=== PATIENT | female | born 1980 | race Caucasian/White ===

== ENCOUNTER 2024-12-11 14:53 | Outpatient (CLI) | payer MEDICAID, SELFPAY | END 2024-12-11 14:54 | disposition home or self-care (01) | LOC: PUVA 15:03 | PROVIDERS: PCP Physician Assistant; Visit Provider Dermatology | DX: L92.0 Granuloma annulare (principal) | CPT/HCPCS: 96900 ==

== ENCOUNTER 2024-12-12 08:07 | Outpatient (CLI) | payer MEDICAID, SELFPAY | END 2024-12-12 08:08 | disposition home or self-care (01) | LOC: PUVA 08:08 | PROVIDERS: PCP Physician Assistant; Visit Provider Dermatology | DX: L92.0 Granuloma annulare (principal) | CPT/HCPCS: 96900 ==

== ENCOUNTER 2024-12-18 14:46 | Outpatient (CLI) | payer MEDICAID, SELFPAY | END 2024-12-18 14:47 | disposition home or self-care (01) | LOC: PUVA 14:46 | PROVIDERS: PCP Family Medicine; Visit Provider Dermatology | DX: L92.0 Granuloma annulare (principal) | CPT/HCPCS: 96900 ==

== ENCOUNTER 2024-12-19 07:18 | Outpatient (CLI) | payer MEDICAID, SELFPAY | END 2024-12-19 07:19 | disposition home or self-care (01) | LOC: PUVA 07:19 | PROVIDERS: PCP Family Medicine; Visit Provider Dermatology | DX: L92.0 Granuloma annulare (principal) | CPT/HCPCS: 96900 ==

== ENCOUNTER 2024-12-23 08:02 | Outpatient (CLI) | payer MEDICAID, SELFPAY | END 2024-12-23 08:03 | disposition home or self-care (01) | LOC: PUVA 08:02 | PROVIDERS: PCP Family Medicine; Visit Provider Dermatology | DX: L92.0 Granuloma annulare (principal) | CPT/HCPCS: 96900 ==

== ENCOUNTER 2024-12-25 07:27 | Outpatient (CLI) | payer MEDICAID, SELFPAY | END 2024-12-25 07:28 | disposition home or self-care (01) | LOC: PUVA 07:28 | PROVIDERS: PCP Family Medicine; Visit Provider Dermatology | DX: L92.0 Granuloma annulare (principal) | CPT/HCPCS: 96900 ==

== ENCOUNTER 2024-12-30 07:07 | Outpatient (CLI) | payer MEDICAID, SELFPAY | END 2024-12-30 07:08 | disposition home or self-care (01) | LOC: PUVA 07:07 | PROVIDERS: PCP Family Medicine; Visit Provider Dermatology | DX: L92.0 Granuloma annulare (principal) | CPT/HCPCS: 96900 ==

== ENCOUNTER 2025-01-06 14:45 | Outpatient (CLI) | payer MEDICAID, SELFPAY | END 2025-01-06 14:46 | disposition home or self-care (01) | LOC: PUVA 14:45 | PROVIDERS: PCP Family Medicine; Visit Provider Dermatology | DX: L92.0 Granuloma annulare (principal) | CPT/HCPCS: 96900 ==

== ENCOUNTER 2025-01-07 15:25 | Outpatient (CLI) | payer MEDICAID, SELFPAY | END 2025-01-07 15:26 | disposition home or self-care (01) | LOC: PUVA 15:25 | PROVIDERS: PCP Family Medicine; Visit Provider Dermatology | DX: L92.0 Granuloma annulare (principal) | CPT/HCPCS: 96900 ==

== ENCOUNTER 2025-01-13 14:55 | Outpatient (CLI) | payer MEDICAID, SELFPAY | END 2025-01-13 14:56 | disposition home or self-care (01) | LOC: PUVA 14:55 | PROVIDERS: PCP Family Medicine; Visit Provider Dermatology | DX: L92.0 Granuloma annulare (principal) | CPT/HCPCS: 96900 ==

== ENCOUNTER 2025-01-15 10:21 | Outpatient (CLI) | payer MEDICAID, SELFPAY | END 2025-01-15 10:22 | disposition home or self-care (01) | LOC: PUVA 10:21 | PROVIDERS: PCP Family Medicine; Visit Provider Dermatology | DX: L92.0 Granuloma annulare (principal) | CPT/HCPCS: 96900 ==

== ENCOUNTER 2025-01-20 07:06 | Outpatient (CLI) | payer MEDICAID, SELFPAY | END 2025-01-20 07:07 | disposition home or self-care (01) | LOC: PUVA 07:06 | PROVIDERS: PCP Family Medicine; Visit Provider Dermatology | DX: L92.0 Granuloma annulare (principal) | CPT/HCPCS: 96900 ==

== ENCOUNTER 2025-01-26 07:54 | Outpatient (CLI) | payer MEDICAID, SELFPAY | END 2025-01-26 07:55 | disposition home or self-care (01) | LOC: PUVA 07:55 | PROVIDERS: PCP Family Medicine; Visit Provider Dermatology | DX: L92.0 Granuloma annulare (principal) | CPT/HCPCS: 96900 ==

== ENCOUNTER 2025-01-29 13:03 | Outpatient (CLI) | payer MEDICAID, SELFPAY | END 2025-01-29 13:04 | disposition home or self-care (01) | LOC: PUVA 13:03 | PROVIDERS: PCP Family Medicine; Visit Provider Dermatology | DX: L92.0 Granuloma annulare (principal) | CPT/HCPCS: 96900 ==

== ENCOUNTER 2025-02-03 14:26 | Outpatient (CLI) | payer MEDICAID, SELFPAY | END 2025-02-03 14:27 | disposition home or self-care (01) | LOC: PUVA 14:26 | PROVIDERS: PCP Family Medicine; Visit Provider Dermatology | DX: L92.0 Granuloma annulare (principal) | CPT/HCPCS: 96900 ==

== ENCOUNTER 2025-02-05 14:45 | Outpatient (CLI) | payer MEDICAID, SELFPAY | END 2025-02-05 14:46 | disposition home or self-care (01) | LOC: PUVA 14:46 | PROVIDERS: PCP Family Medicine; Visit Provider Dermatology | DX: L92.0 Granuloma annulare (principal) | CPT/HCPCS: 96900 ==

== ENCOUNTER 2025-02-06 07:07 | Outpatient (CLI) | payer MEDICAID, SELFPAY | END 2025-02-06 07:08 | disposition home or self-care (01) | LOC: PUVA 07:08 | PROVIDERS: PCP Family Medicine; Visit Provider Dermatology | DX: L92.0 Granuloma annulare (principal) | CPT/HCPCS: 96900 ==

== ENCOUNTER 2025-02-10 14:28 | Outpatient (CLI) | payer MEDICAID, SELFPAY | END 2025-02-10 14:29 | disposition home or self-care (01) | LOC: PUVA 14:28 | PROVIDERS: PCP Family Medicine; Visit Provider Dermatology | DX: L92.0 Granuloma annulare (principal) | CPT/HCPCS: 96900 ==

== ENCOUNTER 2025-02-13 07:16 | Outpatient (CLI) | payer MEDICAID, SELFPAY | END 2025-02-13 07:17 | disposition home or self-care (01) | LOC: PUVA 07:16 | PROVIDERS: PCP Family Medicine; Visit Provider Dermatology | DX: L92.0 Granuloma annulare (principal) | CPT/HCPCS: 96900 ==

== ENCOUNTER 2025-02-17 07:04 | Outpatient (CLI) | payer MEDICAID, SELFPAY | END 2025-02-17 07:05 | disposition home or self-care (01) | LOC: PUVA 07:04 | PROVIDERS: PCP Family Medicine; Visit Provider Dermatology | DX: L92.0 Granuloma annulare (principal) | CPT/HCPCS: 96900 ==

== ENCOUNTER 2025-02-20 07:00 | Outpatient (CLI) | payer MEDICAID, SELFPAY | END 2025-02-20 07:01 | disposition home or self-care (01) | LOC: PUVA 07:06 | PROVIDERS: PCP Family Medicine; Visit Provider Dermatology | DX: L92.0 Granuloma annulare (principal) | CPT/HCPCS: 96900 ==

== ENCOUNTER 2025-02-24 07:28 | Outpatient (CLI) | payer MEDICAID, SELFPAY | END 2025-02-24 07:29 | disposition home or self-care (01) | LOC: PUVA 07:29 | PROVIDERS: PCP Family Medicine; Visit Provider Dermatology | DX: L92.0 Granuloma annulare (principal) | CPT/HCPCS: 96900 ==

== ENCOUNTER 2025-02-27 07:09 | Outpatient (CLI) | payer MEDICAID, SELFPAY | END 2025-02-27 07:10 | disposition home or self-care (01) | LOC: PUVA 07:09 | PROVIDERS: PCP Family Medicine; Visit Provider Dermatology | DX: L92.0 Granuloma annulare (principal) | CPT/HCPCS: 96900 ==

== ENCOUNTER 2025-03-03 14:29 | Outpatient (CLI) | payer MEDICAID, SELFPAY | END 2025-03-03 14:30 | disposition home or self-care (01) | LOC: PUVA 14:30 | PROVIDERS: PCP Family Medicine; Visit Provider Dermatology | DX: L92.0 Granuloma annulare (principal) | CPT/HCPCS: 96900 ==

== ENCOUNTER 2025-03-06 07:16 | Outpatient (CLI) | payer MEDICAID, SELFPAY | END 2025-03-06 07:17 | disposition home or self-care (01) | LOC: PUVA 07:17 | PROVIDERS: PCP Family Medicine; Visit Provider Dermatology | DX: L92.0 Granuloma annulare (principal) | CPT/HCPCS: 96900 ==

== ENCOUNTER 2025-03-10 06:58 | Outpatient (CLI) | payer MEDICAID, SELFPAY | END 2025-03-10 06:59 | disposition home or self-care (01) | LOC: PUVA 06:58 | PROVIDERS: PCP Family Medicine; Visit Provider Dermatology | DX: L92.0 Granuloma annulare (principal) | CPT/HCPCS: 96900 ==

== ENCOUNTER 2025-03-19 10:13 | Outpatient (CLI) | payer MEDICAID, SELFPAY | END 2025-03-19 10:14 | disposition home or self-care (01) | LOC: PUVA 10:13 | PROVIDERS: PCP Family Medicine; Visit Provider Dermatology | DX: L92.0 Granuloma annulare (principal) | CPT/HCPCS: 96900 ==

== ENCOUNTER 2025-03-24 07:17 | Outpatient (CLI) | payer MEDICAID, SELFPAY | END 2025-03-24 07:18 | disposition home or self-care (01) | LOC: PUVA 07:18 | PROVIDERS: PCP Family Medicine; Visit Provider Dermatology | DX: L92.0 Granuloma annulare (principal) | CPT/HCPCS: 96900 ==